=== PATIENT | male | born 1950 | race Caucasian/White ===

== ENCOUNTER 2021-11-02 15:19 | Inpatient (IN) | payer OTHER, MEDICAID ==
[~2021-11-02] VITALS: Ht 180.3 cm; Wt 95.0 kg
[~2021-11-02 15:19] MED LIST: ASPI-1265 PO; ASPI-144; CHOL10002 PO; HYDR25TA4 PO; LISI20TA28 PO; NITR0.4T51 SL
[2021-11-02 16:03] LABS: BASOPHILS # (AUTO) 0.1 X10'3 (0-0.2); BASOPHILS % (AUTO) 0.6 % (0-1); EOSINOPHILS # (AUTO) 0.3 X10'3 (0-0.9); EOSINOPHILS % (AUTO) 3.4 % (0-6); HEMATOCRIT 40.9 % (42.0-52.0); HEMOGLOBIN 13.8 g/dl (14.0-17.9); LYMPHOCYTES # (AUTO) 2.2 X10'3 (1.1-4.8); LYMPHOCYTES % (AUTO) 26.7 % (21-51); MEAN CORPUSCULAR HGB CONC 33.6 g/dL (33.0-36.5); MEAN CORPUSCULAR VOLUME 86.4 FL (78-98); MEAN PLATELET VOLUME 6.7 FL (7.4-10.4); MONOCYTES # (AUTO) 0.6 X10'3 (0-0.9); MONOCYTES % (AUTO) 6.9 % (2-12); NEUTROPHILS % (AUTO) 62.4 % (42-75); PLATELET COUNT 380 X10'3 (140-440); RED BLOOD COUNT 4.74 X10'6 (4.70-6.10); RED CELL DISTRIBUTION WIDTH 14.9 % (11.5-14.5); WHITE BLOOD COUNT 8.1 X10'3 (4.5-11.0)
[2021-11-02 16:13] LABS: ALANINE AMINOTRANSFERASE 24 U/L (12-78); ALBUMIN 3.6 G/DL (3.4-5.0); ALBUMIN/GLOBULIN RATIO 0.9 (1.1-1.5); ALKALINE PHOSPHATASE 66 IU/L (46-116); ANION GAP 9 (8-16); ASPARTATE AMINO TRANSFERASE 19 U/L (10-37); BILIRUBIN,TOTAL 0.3 MG/DL (0.1-1.0); BLOOD UREA NITROGEN 24 MG/DL (7-18); CALCIUM 8.9 MG/DL (8.5-10.1); CHLORIDE 110 MMOL/L (99-107); GLUCOSE 121 MG/DL (70-104); POTASSIUM 4.1 MMOL/L (3.5-5.1); SODIUM 148 MMOL/L (135-145); TOTAL CARBON DIOXIDE 28.6 MMOL/L (24-32); TOTAL PROTEIN 7.4 G/DL (6.4-8.2); eGFR 60 ML/MIN
[2021-11-02] MEDS ORDERED: aspirin 81mg tab.chew PO ONE (16:25)
[2021-11-02] MEDS ORDERED: potassium Cl 20 mEq SR tablet PO PRN ×2 (17:35)
[2021-11-02] MEDS ORDERED: magnesium Cl slow-release 64mg tablet PO PRN (17:35)
[2021-11-02] MEDS ORDERED: magnesium 4gm in 100ml NS 100 ML IV PRN (17:35)
[2021-11-02] MEDS ORDERED: HYDROcodone/acetaminophen 5mg/325mg tablet PO PRN (17:35)
[2021-11-02] MEDS ORDERED: PERFLUTREN PROTEIN-A MICROSPHR (Optison) 0.22 MG/ML 3ML VIAL IV ONE (17:35)
[2021-11-02] MEDS ORDERED: morphine 2 MG/ML inj. syringe IV PRN (17:35)
[2021-11-02] MEDS ORDERED: magnesium 2GM in 50ml NS 50 ML IV PRN (17:35)
[2021-11-02] MEDS ORDERED: potassium CL 10mEq/100ml bag 100 ML IV PRN (17:35)
[2021-11-02] MEDS ORDERED: nitroGLYCERIN 0.4mg SUBLingual tab SL PRN (17:40)
[2021-11-02] MEDS ORDERED: regadenoson 0.4mg/5ml syringe IV PRN (17:40)
[2021-11-02] MEDS ORDERED: metoprolol tartrate 1mg/ml inj IV PRN (17:40)
[2021-11-02] MEDS ORDERED: aminophylline 250mg/10ml inj. IV PRN (17:40)
[2021-11-02 18:37] LABS: MAGNESIUM 2.1 MG/DL (1.5-2.4)
[2021-11-02] MEDS: heparin, porcine 5000 units/ml vial SQ SCH (20:00)
[2021-11-02] MEDS: K and/or MAG REPLACEMENT MC SCH (20:00)
--- NOTE | 2021-11-02 21:27 | NUR ---
RECEIVED PATIENT INTO ROM 4012B AND ASSUMED CARE. REFUSING HEPARIN STATING "NOBODY IS POKING ME IN THE STOMACH, I DONT NEED IT". EDUCATED ON PLAN OF CARE AND IS AGREEABLE.
[2021-11-02 22:00] VITALS: BP 161/77
[2021-11-03] VITALS (21 sets, daily range): BP systolic 108–175; BP diastolic 52–88
--- NOTE | 2021-11-03 06:51 | NUR ---
Patient in room ORTHO 4012B. I have received report from VERNON BEE and had the opportunity to ask questions and assume patient care.
[2021-11-03 07:05] LABS: BASOPHILS % (AUTO) 0.4 % (0-1); EOSINOPHILS # (AUTO) 0.4 X10'3 (0-0.9); EOSINOPHILS % (AUTO) 4.9 % (0-6); HEMATOCRIT 39.6 % (42.0-52.0); HEMOGLOBIN 13.1 g/dl (14.0-17.9); LYMPHOCYTES # (AUTO) 2.3 X10'3 (1.1-4.8); LYMPHOCYTES % (AUTO) 30.1 % (21-51); MEAN CORPUSCULAR HEMOGLOBIN 28.4 PG (27.0-31.0); MEAN CORPUSCULAR VOLUME 86.1 FL (78-98); MEAN PLATELET VOLUME 6.7 FL (7.4-10.4); MONOCYTES # (AUTO) 0.7 X10'3 (0-0.9); MONOCYTES % (AUTO) 9.6 % (2-12); NEUTROPHILS # (AUTO) 4.2 X10'3 (1.8-7.7); PLATELET COUNT 341 X10'3 (140-440); RED CELL DISTRIBUTION WIDTH 15.2 % (11.5-14.5); WHITE BLOOD COUNT 7.7 X10'3 (4.5-11.0)
[2021-11-03 07:18] LABS: ALBUMIN 3.3 G/DL (3.4-5.0); ANION GAP 7 (8-16); BLOOD UREA NITROGEN 25 MG/DL (7-18); CALCIUM 8.6 MG/DL (8.5-10.1); CHLORIDE 109 MMOL/L (99-107); CREATININE 0.96 MG/DL (0.60-1.10); GLUCOSE 105 MG/DL (70-104); MAGNESIUM 1.8 MG/DL (1.5-2.4); POTASSIUM 3.9 MMOL/L (3.5-5.1); SODIUM 144 MMOL/L (135-145); TOTAL CARBON DIOXIDE 28.2 MMOL/L (24-32); eGFR 77 ML/MIN
[2021-11-03] MEDS: K and/or MAG REPLACEMENT MC SCH ×2 (08:00→20:00)
[2021-11-03] MEDS: heparin, porcine 5000 units/ml vial SQ SCH (08:00)
[2021-11-03] MEDS ORDERED: aminophylline 500mg/20ml vial ONE (09:18)
[2021-11-03] MEDS ORDERED: CHOL100046 PO (09:33)
[2021-11-03] MEDS ORDERED: HYDR25TA4 PO (09:33)
[2021-11-03] MEDS ORDERED: ASPI-611 PO (09:33)
[2021-11-03] MEDS ORDERED: LISI20TA28 PO (09:33)
[2021-11-03] MEDS ORDERED: nitroGLYCERIN 1gm ointment UD TP SCH (10:50)
[2021-11-03] MEDS ORDERED: heparin 10,000 units/1 ML INJ IV ONE (10:55)
[2021-11-03] MEDS ORDERED: heparin 25,000 UNIT/250ml bag 250 ML IV SCH (10:55)
[2021-11-03] MEDS ORDERED: heparin 10,000 units/1 ML INJ IV PRN (10:55)
[2021-11-03 11:43] LABS: APTT 26 SECONDS (22-32)
[2021-11-03] MEDS: lisinopril 20mg tablet PO SCH (13:16)
[2021-11-03] MEDS ORDERED: normal saline 1000ml 1,000 ML IV SCH ×2 (14:15→22:10)
[2021-11-03] MEDS ORDERED: heparin 1,000unit/ml 10ml vial 10 ML ONE (16:03)
[2021-11-03] MEDS ORDERED: LIDOCAINE 1% w/preservative (10 MG/ML) inj. 10mL VIAL ONE (16:03)
[2021-11-03] MEDS ORDERED: iohexol 350MG/ML 100ml bottle IV ONE ×2 (16:03→17:04)
[2021-11-03] MEDS ORDERED: verapamil 2.5 mg/ml inj IV ONE (16:03)
[2021-11-03] MEDS ORDERED: fentaNYL/PF 50MCG/1 ML 2ML syringe ONE (16:03)
[2021-11-03] MEDS ORDERED: nitroGLYCERIN-Tridil 50MG/D5W 250 ML IV ONE (16:03)
[2021-11-03] MEDS ORDERED: midazolam 1 mg/ML 2ml injection ONE ×2 (16:03→16:46)
--- NOTE | 2021-11-03 16:05 | NUR ---
Student documentation: I have reviewed and agree with all interventions, assessments documented by CAT, SN.
[2021-11-03] MEDS ORDERED: clopidogrel 300mg tablet ONE (17:03)
[2021-11-03] MEDS ORDERED: aspirin 325mg tablet ONE (17:03)
[2021-11-03] MEDS ORDERED: iohexol 350 MG/ML 50ML vial IV ONE (17:26)
--- NOTE | 2021-11-03 18:33 | NUR ---
Problems reprioritized. Patient report given, questions answered & plan of care reviewed with VERNON Long.
[2021-11-03] MEDS ORDERED: HYDROcodone/acetaminophen 5mg/325mg tablet PO PRN ×3 (18:50→22:10)
[2021-11-03] MEDS ORDERED: HYDROcodone/acetaminophen 10/325mg tab PO PRN ×3 (18:50→22:10)
--- NOTE | 2021-11-03 19:04 | NUR ---
confirmed with Marybel from vascular: starting from 1900 release 2cc from vasc band, wait 1hr to release 2cc then 2cc every 15 min til no more air in reserve.
[2021-11-03] MEDS: metoprolol tartrate 25mg tablet PO SCH (20:03)
--- NOTE | 2021-11-04 00:30 | NUR ---
REMOVED VASCBAND AND APPLIED BANDAID. NO BLEEDING/HEMATOMA SEEN AT THIS MOMENT.
[2021-11-04 02:00] VITALS: BP 124/61
[2021-11-04 06:00] VITALS: BP 137/63
--- NOTE | 2021-11-04 06:22 | NUR ---
Problems reprioritized. Patient report given, questions answered & plan of care reviewed with etelvina Chaudhry.
--- NOTE | 2021-11-04 07:05 | NUR ---
Patient in room ORTHO 4012. I have received report from VERNON Matthews and had the opportunity to ask questions and assume patient care.
[2021-11-04 07:52] LABS: BASOPHILS % (AUTO) 0.4 % (0-1); EOSINOPHILS # (AUTO) 0.3 X10'3 (0-0.9); EOSINOPHILS % (AUTO) 3.8 % (0-6); HEMATOCRIT 37.9 % (42.0-52.0); HEMOGLOBIN 12.8 g/dl (14.0-17.9); LYMPHOCYTES # (AUTO) 2.3 X10'3 (1.1-4.8); LYMPHOCYTES % (AUTO) 28.6 % (21-51); MEAN CORPUSCULAR HEMOGLOBIN 29.4 PG (27.0-31.0); MEAN CORPUSCULAR HGB CONC 33.8 g/dL (33.0-36.5); MEAN PLATELET VOLUME 6.7 FL (7.4-10.4); MONOCYTES # (AUTO) 0.8 X10'3 (0-0.9); MONOCYTES % (AUTO) 9.9 % (2-12); NEUTROPHILS # (AUTO) 4.7 X10'3 (1.8-7.7); NEUTROPHILS % (AUTO) 57.3 % (42-75); PLATELET COUNT 336 X10'3 (140-440); RED BLOOD COUNT 4.35 X10'6 (4.70-6.10); RED CELL DISTRIBUTION WIDTH 14.8 % (11.5-14.5); WHITE BLOOD COUNT 8.2 X10'3 (4.5-11.0)
[2021-11-04] MEDS ORDERED: HYDROchlorothiazide 25mg tablet PO SCH ×2 (08:00)
[2021-11-04] MEDS ORDERED: clopidogrel 75mg tablet PO SCH (08:00)
[2021-11-04] MEDS: K and/or MAG REPLACEMENT MC SCH (08:00)
[2021-11-04] MEDS ORDERED: cholecalciferol (vitamin D3) 1,000 unit (25mcg) tablet PO SCH (08:00)
[2021-11-04] MEDS ORDERED: aspirin 81mg, enteric-coated 1 TAB TABLET.DR PO SCH (08:00)
[2021-11-04 08:20] LABS: ALBUMIN 3.2 G/DL (3.4-5.0); ANION GAP 8 (8-16); BLOOD UREA NITROGEN 24 MG/DL (7-18); BUN/CREATININE RATIO 26.4 (5.4-32.0); CALCIUM 8.6 MG/DL (8.5-10.1); CHLORIDE 107 MMOL/L (99-107); CREATININE 0.91 MG/DL (0.60-1.10); GLUCOSE 115 MG/DL (70-104); MAGNESIUM 2.2 MG/DL (1.5-2.4); POTASSIUM 4.2 MMOL/L (3.5-5.1); SODIUM 142 MMOL/L (135-145); TOTAL CARBON DIOXIDE 26.6 MMOL/L (24-32); eGFR 82 ML/MIN
[2021-11-04 08:37] LABS: CHOL/HDL RATIO 4.1 (0.00-4.99); CHOLESTEROL 185 MG/DL (0-200); HDL CHOLESTEROL 45 MG/DL (35-60); LDL CHOLESTEROL 119 MG/DL (50-100); TRIGLYCERIDES 137 MG/DL (20-135)
[2021-11-04] MEDS: metoprolol tartrate 25mg tablet PO SCH (09:04)
[2021-11-04] MEDS: lisinopril 20mg tablet PO SCH (09:04)
[2021-11-04 09:06] VITALS: BP 119/65
[2021-11-04] MEDS ORDERED: LOP25T PO ×2 (10:14→10:25)
[2021-11-04] MEDS ORDERED: CLOP75TA34 PO (10:14)
[2021-11-04] MEDS ORDERED: ATOR10TA87 PO (10:16)
[2021-11-04] MEDS ORDERED: ATOR40TA PO (10:23)
[2021-11-04] MEDS ORDERED: CLOP75TA15 PO (10:25)
[2021-11-04] MEDS ORDERED: ASPI-611 PO (10:25)
--- NOTE | 2021-11-04 11:36 | NUR ---
Message: : Richa [id number]: Delano Blakely ECG done (Shows SR) and Plavix is on hand. Let me know when I can print discharge papers. Thank you.
--- NOTE | 2021-11-04 14:52 | NUR ---
Patient was discharged at 1430 with instructions and verbalizing understanding of instructions. He left in wheelchair accompanied by nursing staff and departed via private vehicle. The IV lines were removed with cannula intact. The tele monitor was removed and returned to tele. The patient was given several Plavix pills (so he can have until he gets his own medications) as requested by MD. Education was provided at bedside and all questions were answered. Patient will set up his own follow up appointment. Patient is stable and appropriate for discharge.
== END 2021-11-04 14:30 | disposition home or self-care (01) | DRG 246 ==
LOC: ER 15:20 → INTOOBSV 17:36 → ED HOLD 17:36 → OBSVTOIN 17:36 → ORTHO 4S 21:07
PROVIDERS: ADMIT Internal Medicine; ATTEND Internal Medicine
PROC: 4A023N7 Measurement of Cardiac Sampling and Pressure, Left Heart, Percutaneous Approach (ICD-10-PCS; principal; 2021-11-03)
PROC: 027035Z Dilation of Coronary Artery, One Artery with Two Drug-eluting Intraluminal Devices, Percutaneous Approach (ICD-10-PCS; 2021-11-03)
PROC: B2111ZZ Fluoroscopy of Multiple Coronary Arteries using Low Osmolar Contrast (ICD-10-PCS; 2021-11-03)
PROC: 4A02XM4 Measurement of Cardiac Total Activity, External Approach (ICD-10-PCS; 2021-11-03)
PROC: 3E033HZ Introduction of Radioactive Substance into Peripheral Vein, Percutaneous Approach (ICD-10-PCS; 2021-11-03)
DX: I25.119 Atherosclerotic heart disease of native coronary artery with unspecified angina pectoris (principal); N17.0 Acute kidney failure with tubular necrosis; E87.0 Hyperosmolality and hypernatremia; I10 Essential (primary) hypertension; Z79.899 Other long term (current) drug therapy; Z87.891 Personal history of nicotine dependence; Z79.82 Long term (current) use of aspirin
CPT/HCPCS: 93306; 93458; 99285; C9600; 36415; 71045; 78452; 80048; 80053; 80061; 83735; 83880; 84484; 85025; 85610; 85730; 87081; 93005; 93017; 99152; 99153; A4620; A5120; A9500; C1725; C1751; C1769; C1874; C1894; C9601; G0378; J0280; J1644; J2250; J2270; J2785; J3010; J3490; J7030; Q9967

== ENCOUNTER 2022-05-04 12:28 | Day surgery (SDC) | payer OTHER ==
[2022-05-03 10:29] LABS: BASOPHILS % (AUTO) 0.4 % (0-1); EOSINOPHILS # (AUTO) 0.3 X10'3 (0-0.9); EOSINOPHILS % (AUTO) 4.1 % (0-6); HEMATOCRIT 38.1 % (42.0-52.0); LYMPHOCYTES # (AUTO) 1.9 X10'3 (1.1-4.8); LYMPHOCYTES % (AUTO) 27.1 % (21-51); MEAN CORPUSCULAR HEMOGLOBIN 29.6 PG (27.0-31.0); MEAN CORPUSCULAR HGB CONC 34.2 g/dL (33.0-36.5); MEAN CORPUSCULAR VOLUME 86.5 FL (78-98); MEAN PLATELET VOLUME 6.3 FL (7.4-10.4); MONOCYTES # (AUTO) 0.6 X10'3 (0-0.9); MONOCYTES % (AUTO) 9.2 % (2-12); NEUTROPHILS # (AUTO) 4.1 X10'3 (1.8-7.7); NEUTROPHILS % (AUTO) 59.2 % (42-75); PLATELET COUNT 329 X10'3 (140-440); RED CELL DISTRIBUTION WIDTH 14.6 % (11.5-14.5); WHITE BLOOD COUNT 6.8 X10'3 (4.5-11.0)
[2022-05-03 10:41] LABS: APTT 26 SECONDS (22-32)
[2022-05-03 10:47] LABS: ALBUMIN 3.3 G/DL (3.4-5.0); ANION GAP 8 (8-16); BLOOD UREA NITROGEN 15 MG/DL (7-18); BUN/CREATININE RATIO 14.9 (5.4-32.0); CALCIUM 8.4 MG/DL (8.5-10.1); CHLORIDE 104 MMOL/L (99-107); CHOL/HDL RATIO 3.2 (0.00-4.99); CHOLESTEROL 126 MG/DL (0-200); CREATININE 1.01 MG/DL (0.60-1.10); GLUCOSE 119 MG/DL (70-104); HDL CHOLESTEROL 40 MG/DL (35-60); LDL CHOLESTEROL 63 MG/DL (50-100); POTASSIUM 3.6 MMOL/L (3.5-5.1); SODIUM 142 MMOL/L (135-145); TOTAL CARBON DIOXIDE 30.4 MMOL/L (24-32); TRIGLYCERIDES 125 MG/DL (20-135); eGFR 73 ML/MIN
[2022-05-04] VITALS (7 sets, daily range): BP systolic 141–176; BP diastolic 69–78
[~2022-05-04] VITALS: Ht 180.3 cm; Wt 110.6 kg
[~2022-05-04 12:28] MED LIST changes: -ASPI-1265 PO; -ASPI-144; +ASPI-611 PO; -CHOL10002 PO; +CHOL100046 PO; +CLOP75TA15 PO; +LOP25T PO; -NITR0.4T51 SL
[2022-05-04] MEDS ORDERED: diphenhydrAMINE 25mg capsule PO PRN (13:05)
[2022-05-04] MEDS ORDERED: LORazepam 0.5 MG tablet PO PRN (13:05)
[2022-05-04] MEDS ORDERED: normal saline 1,000 ML IV SCH (13:05)
[2022-05-04] MEDS ORDERED: METO25TA6 PO (13:24)
[2022-05-04] MEDS ORDERED: CLOP75TA34 PO (13:24)
[2022-05-04] MEDS ORDERED: ATOR40TA72 PO (13:24)
[2022-05-04] MEDS ORDERED: ASPI-1397 PO (13:24)
[2022-05-04] MEDS ORDERED: ASPI-144 PO (13:26)
[2022-05-04] MEDS ORDERED: LIDOcaine 1% (10mg/ml) 2ml vial ONE (15:45)
[2022-05-04] MEDS ORDERED: midazolam 1 mg/ML 2ml injection ONE (15:45)
[2022-05-04] MEDS ORDERED: fentaNYL/PF 50MCG/1 ML 2ML syringe ONE (15:45)
[2022-05-04] MEDS ORDERED: verapamil 2.5 mg/ml inj IV ONE (15:45)
[2022-05-04] MEDS ORDERED: iohexol 350MG/ML 100ml bottle IV ONE ×2 (15:46→16:30)
[2022-05-04] MEDS ORDERED: heparin 1,000unit/ml 10ml vial 10 ML ONE ×2 (15:46→16:33)
[2022-05-04] MEDS ORDERED: HYDROcodone/acetaminophen 5mg/325mg tablet PO PRN (17:20)
[2022-05-04] MEDS ORDERED: HYDROcodone/acetaminophen 10/325mg tab PO PRN (17:20)
== END 2022-05-04 19:05 | disposition home or self-care (01) ==
LOC: SSTAY O 12:28
PROVIDERS: ATTEND Student in an Organized Health Care Education/Training Program
DX: I25.110 Atherosclerotic heart disease of native coronary artery with unstable angina pectoris (principal); I10 Essential (primary) hypertension; Z79.01 Long term (current) use of anticoagulants; Z79.899 Other long term (current) drug therapy; Z79.82 Long term (current) use of aspirin
CPT/HCPCS: 36415; 80048; 80061; 85025; 85610; 85730; 93005; 93458; 93571; 99152; 99153; C1751; C1769; C1894; J1644; J2250; J3010; J3490; J7030; Q0163; Q9967; A4620; A5120; A6258; A6402